=== PATIENT | female | born 1950 | race Caucasian/White ===

== ENCOUNTER 2021-08-08 15:01 | Inpatient (IN) ==
[2021-08-08] MEDS ORDERED: METOPROLOL TARTRATE 5 MG/5 ML VIAL IV STA ×2 (15:29→16:50)
[2021-08-08 15:54] LABS: Basophils % 0.1 % (0.0-0.8); Hematocrit 48.4 VOL% (35.7-47.0); Hemoglobin 15.7 GM/DL (12.0-16.0); Immature Granulocytes Absolute 0.24 #; Lymphocytes # 1.3 10*3/uL (1.4-4.0); Lymphocytes % 5.7 % (21.3-54.2); Mean Corpuscular HGB Conc 32.4 GM/DL (32-36); Mean Corpuscular Volume 94.9 FL (87-102); Mean Platelet Volume 10.9 FL (9.6-12.0); Monocytes % 3.4 % (1.7-12.7); Neutrophils % 89.8 % (38.7-73.9); Platelet Count 266 T/CUMM (130-400); Red Cell Distribution Width 14.2 % (9.3-17.3); White Blood Count 23.3 T/CUMM (4-12)
[2021-08-08 16:14] LABS: Blood Urea Nitrogen 75 MG/DL (7-18); Calcium 9.2 MG/DL (8.5-10.1); Carbon Dioxide 22 MMOL/L (21-32); Estimated Glom Filtration Rate 20 ML/MIN; Glucose 183 MG/DL (74-106); Osmolality,Calculated 301.7 MOS/KG (273-304); Sodium 138 MMOL/L (136-145)
[2021-08-08 16:15] LABS: Lymphocytes 9 % (20-55); Platelet Estimate Adequate; Segmented Neutrophils 87 % (50-85); Total Cells Counted 100
[2021-08-08] MEDS ORDERED: ENOXAPARIN 100 MG/ML SYRINGE SUBCUT STA (17:45)
[2021-08-08] MEDS ORDERED: ONDANSETRON 4 MG/2 ML VIAL IV STA (17:45)
[2021-08-08] MEDS ORDERED: MORPHINE 4 MG/1 ML VIAL IV STA (17:59)
[2021-08-08] MEDS ORDERED: METOPROLOL TARTRATE 25 MG TABLET PO STA (18:27)
[2021-08-08] MEDS ORDERED: GLUCAGON 1 MG VIAL IM PRN (18:30)
[2021-08-08] MEDS ORDERED: ACETAMINOPHEN 325 MG TABLET PO PRN (18:30)
[2021-08-08] MEDS ORDERED: ALBUTEROL 2.5 MG/3 ML NEB RESP TX PRN (18:30)
[2021-08-08] MEDS ORDERED: hydrALAZINE 20 MG/1 ML VIAL IV PRN (18:30)
[2021-08-08] MEDS ORDERED: ONDANSETRON 4 MG/2 ML VIAL IV PRN (18:30)
[2021-08-08] MEDS ORDERED: DEXTROSE 10% 250 ML BAG IV PRN (18:49)
[2021-08-08] MEDS ORDERED: DILTIAZEM INJ 100 MG in SODIUM CHLORIDE 0.9% 100 ML IV SCH (19:00)
[2021-08-08] MEDS: SODIUM CHLORIDE 0.9% 1,000 ML IV SCH (20:40)
[2021-08-08] MEDS ORDERED: METOPROLOL TARTRATE 25 MG TABLET PO SCH (21:00)
[2021-08-09 01:02] LABS: Bacteria,Urine Occasional /HPF (Few); Hyaline Casts,Urine 1 /LPF (0-3); Mucus,Urine Occasional /LPF (Occasional); RBC,Urine 1 /HPF (0-4); Squamous Epithelial Cell,Urine Occasional /HPF (0-10)
[2021-08-09 01:04] LABS: Bilirubin,Urine Negative (Negative); Blood, Urine Negative (Negative); Glucose,Urine (UA) Negative (Negative); Ketones,Urine Negative (Negative); Nitrite,Urine Negative (Negative); Protein,Urine Negative (Negative); Urine Appearance Clear (Clear); Urine Color Yellow (Yellow); Urine Specific Gravity 1.025 (1.001-1.035); Urine Urobilinogen 0.2 eU/dL (<2.0)
[2021-08-09 06:13] LABS: Hematocrit 43.9 VOL% (35.7-47.0); Hemoglobin 14.2 GM/DL (12.0-16.0); Red Blood Count 4.63 MC/CUMM (3.8-5.5); White Blood Count 18.6 T/CUMM (4-12)
[2021-08-09 06:14] LABS: Basophils % 0.1 % (0.0-0.8); Immature Granulocytes % 1.3 %; Immature Granulocytes Absolute 0.24 #; Lymphocytes # 1.3 10*3/uL (1.4-4.0); Lymphocytes % 7.2 % (21.3-54.2); Mean Corpuscular HGB Conc 32.3 GM/DL (32-36); Mean Corpuscular Volume 94.8 FL (87-102); Mean Platelet Volume 10.7 FL (9.6-12.0); Monocytes % 4.3 % (1.7-12.7); Neutrophils % 87.1 % (38.7-73.9); Platelet Count 209 T/CUMM (130-400); Red Cell Distribution Width 14.2 % (9.3-17.3)
[2021-08-09 06:33] LABS: Calcium 8.7 MG/DL (8.5-10.1); Osmolality,Calculated 294.1 MOS/KG (273-304); Potassium 5.3 MMOL/L (3.5-5.1); Risk Ratio 3.23; Thyroid Stimulating Hormone 0.125 uIU/ml (0.358-3.74); VLDL Cholesterol 54.6 MG/DL
[2021-08-09 08:46] LABS: Free T4 (Free Thyroxine) 1.09 NG/DL (0.76-1.46)
[2021-08-09] MEDS: METOPROLOL SUCCINATE XL 25 MG TABLET PO SCH (09:34)
[2021-08-09] MEDS: APIXABAN 2.5 MG TABLET PO SCH ×2 (09:34→20:14)
[2021-08-09] MEDS: PANTOPRAZOLE 40 MG TABLET PO SCH (09:34)
[2021-08-09] MEDS ORDERED: DILTIAZEM CD 120 MG CAPSULE PO ONE (13:50)
[2021-08-09] MEDS: SODIUM CHLORIDE 0.9% 1,000 ML IV SCH (13:59)
[2021-08-09] MEDS ORDERED: ENOXAPARIN 40 MG/0.4 ML SYRINGE SUBCUT SCH (17:00)
[2021-08-09] MEDS: SIMVASTATIN 20 MG TABLET PO SCH (20:14)
[2021-08-09] MEDS: SERTRALINE 25 MG TABLET PO SCH (20:14)
[2021-08-10] MEDS: MONTELUKAST 10 MG TABLET PO SCH (09:11)
[2021-08-10] MEDS: PANTOPRAZOLE 40 MG TABLET PO SCH (09:11)
[2021-08-10] MEDS: METOPROLOL SUCCINATE XL 25 MG TABLET PO SCH (09:12)
[2021-08-10] MEDS: DILTIAZEM CD 120 MG CAPSULE PO SCH (09:12)
[2021-08-10] MEDS: EZETIMIBE 10 MG TABLET PO SCH (09:12)
[2021-08-10] MEDS: CHOLECALCIFEROL 1,000 UNIT TABLET PO SCH (09:12)
[2021-08-10] MEDS: APIXABAN 2.5 MG TABLET PO SCH ×2 (09:12→20:40)
[2021-08-10] MEDS: SODIUM CHLORIDE 0.9% 1,000 ML IV SCH (09:42)
[2021-08-10 10:15] LABS: Basophils % 0.2 % (0.0-0.8); Eosinophils # 0.1 10*3/uL (0.0-0.87); Eosinophils % 0.3 % (0.00-10.9); Hematocrit 48.6 VOL% (35.7-47.0); Hemoglobin 15.3 GM/DL (12.0-16.0); Immature Granulocytes % 1.1 %; Immature Granulocytes Absolute 0.17 #; Lymphocytes # 3.1 10*3/uL (1.4-4.0); Lymphocytes % 19.1 % (21.3-54.2); Mean Corpuscular HGB Conc 31.5 GM/DL (32-36); Mean Corpuscular Volume 97.8 FL (87-102); Mean Platelet Volume 10.8 FL (9.6-12.0); Monocytes % 6.3 % (1.7-12.7); Platelet Count 214 T/CUMM (130-400); Red Blood Count 4.97 MC/CUMM (3.8-5.5); Red Cell Distribution Width 14.4 % (9.3-17.3)
[2021-08-10 10:36] LABS: Calcium 8.1 MG/DL (8.5-10.1); Osmolality,Calculated 299.3 MOS/KG (273-304); Potassium 4.7 MMOL/L (3.5-5.1)
[2021-08-10] MEDS: SIMVASTATIN 20 MG TABLET PO SCH (20:40)
[2021-08-10] MEDS: SERTRALINE 25 MG TABLET PO SCH (20:40)
[2021-08-11 04:58] LABS: Basophils % 0.2 % (0.0-0.8); Eosinophils # 0.1 10*3/uL (0.0-0.87); Eosinophils % 1.1 % (0.00-10.9); Hematocrit 47.2 VOL% (35.7-47.0); Hemoglobin 14.4 GM/DL (12.0-16.0); Immature Granulocytes % 0.9 %; Immature Granulocytes Absolute 0.12 #; Lymphocytes # 2.2 10*3/uL (1.4-4.0); Lymphocytes % 16.8 % (21.3-54.2); Mean Corpuscular HGB Conc 30.5 GM/DL (32-36); Mean Corpuscular Volume 95.4 FL (87-102); Mean Platelet Volume 10.3 FL (9.6-12.0); Platelet Count 195 T/CUMM (130-400); Red Blood Count 4.95 MC/CUMM (3.8-5.5); Red Cell Distribution Width 14.3 % (9.3-17.3); White Blood Count 12.9 T/CUMM (4-12)
[2021-08-11 05:18] LABS: Potassium 4.2 MMOL/L (3.5-5.1)
[2021-08-11] MEDS: SODIUM CHLORIDE 0.9% 1,000 ML IV SCH (06:14)
[2021-08-11] MEDS: CHOLECALCIFEROL 1,000 UNIT TABLET PO SCH (10:00)
[2021-08-11] MEDS: EZETIMIBE 10 MG TABLET PO SCH (10:00)
[2021-08-11] MEDS: APIXABAN 2.5 MG TABLET PO SCH (10:00)
[2021-08-11] MEDS: PANTOPRAZOLE 40 MG TABLET PO SCH (10:01)
[2021-08-11] MEDS: METOPROLOL SUCCINATE XL 25 MG TABLET PO SCH (10:01)
[2021-08-11] MEDS: MONTELUKAST 10 MG TABLET PO SCH (10:01)
[2021-08-11] MEDS: DILTIAZEM CD 120 MG CAPSULE PO SCH (10:01)
[2021-08-11 12:00] VITALS: BP 144/99
== END 2021-08-11 16:10 | disposition home or self-care (01) | DRG 308 ==
LOC: N.EDINP 15:01 → N.ED 15:01 → N.TELES 23:22 → SUATTDRO 08-09 08:44
PROVIDERS: ADMIT Internal Medicine Geriatric Medicine; ATTEND Phlebology

== ENCOUNTER 2021-10-15 14:57 | Inpatient (IN) ==
[2021-10-15 16:20] LABS: Albumin 2.7 G/DL (3.4-5.0); Bilirubin,Total 1.2 MG/DL (0.20-1.00); Calcium 8.8 MG/DL (8.5-10.1); Osmolality,Calculated 275.2 MOS/KG (273-304); Potassium 3.4 MMOL/L (3.5-5.1); Total Protein 7.6 G/DL (6.4-8.2)
[2021-10-15 17:24] LABS: Basophils % 0.2 % (0.0-0.8); Eosinophils # 0.2 10*3/uL (0.0-0.87); Eosinophils % 1.5 % (0.00-10.9); Hematocrit 40.7 VOL% (35.7-47.0); Immature Granulocytes % 0.5 %; Immature Granulocytes Absolute 0.07 #; Lymphocytes # 0.9 10*3/uL (1.4-4.0); Lymphocytes % 6.3 % (21.3-54.2); Mean Corpuscular HGB Conc 31.9 GM/DL (32-36); Mean Corpuscular Volume 95.1 FL (87-102); Mean Platelet Volume 11.4 FL (9.6-12.0); Monocytes # 0.9 10*3/uL (0.11-0.8); Monocytes % 6.8 % (1.7-12.7); Neutrophils % 84.7 % (38.7-73.9); Platelet Count 247 T/CUMM (130-400); Red Blood Count 4.28 MC/CUMM (3.8-5.5); Red Cell Distribution Width 13.5 % (9.3-17.3); White Blood Count 13.6 T/CUMM (4-12)
[2021-10-15] MEDS ORDERED: DOCUSATE SODIUM 100 MG CAPSULE PO PRN (19:23)
[2021-10-15] MEDS ORDERED: CALCIUM CARBONATE CHEW 500 MG TABLET PO PRN (19:23)
[2021-10-15] MEDS ORDERED: ONDANSETRON 4 MG/2 ML VIAL IV PRN (19:23)
[2021-10-15] MEDS ORDERED: ACETAMINOPHEN 325 MG TABLET PO PRN (19:23)
[2021-10-15] MEDS: carvediloL 12.5 MG TABLET PO SCH (21:26)
[2021-10-15] MEDS: APIXABAN 2.5 MG TABLET PO SCH (21:27)
[2021-10-15] MEDS: MONTELUKAST 10 MG TABLET PO SCH (21:27)
[2021-10-15] MEDS: SIMVASTATIN 20 MG TABLET PO SCH (21:27)
[2021-10-15] MEDS: FAMOTIDINE 20 MG TABLET PO SCH (21:27)
[2021-10-15] MEDS: SERTRALINE 25 MG TABLET PO SCH (21:27)
[2021-10-16 04:30] LABS: Basophils % 0.2 % (0.0-0.8); Eosinophils # 0.3 10*3/uL (0.0-0.87); Eosinophils % 2.3 % (0.00-10.9); Hematocrit 36.5 VOL% (35.7-47.0); Hemoglobin 11.6 GM/DL (12.0-16.0); Immature Granulocytes % 0.4 %; Immature Granulocytes Absolute 0.05 #; Lymphocytes # 0.9 10*3/uL (1.4-4.0); Lymphocytes % 7.1 % (21.3-54.2); Mean Corpuscular HGB Conc 31.8 GM/DL (32-36); Mean Corpuscular Volume 97.3 FL (87-102); Mean Platelet Volume 11.3 FL (9.6-12.0); Monocytes # 0.8 10*3/uL (0.11-0.8); Monocytes % 6.4 % (1.7-12.7); Neutrophils % 83.6 % (38.7-73.9); Platelet Count 219 T/CUMM (130-400); Red Blood Count 3.75 MC/CUMM (3.8-5.5); Red Cell Distribution Width 13.3 % (9.3-17.3); White Blood Count 12.9 T/CUMM (4-12)
[2021-10-16 04:50] LABS: Calcium 8.5 MG/DL (8.5-10.1); Osmolality,Calculated 277.1 MOS/KG (273-304); Potassium 3.2 MMOL/L (3.5-5.1)
[2021-10-16] MEDS: DILTIAZEM CD 120 MG CAPSULE PO SCH (09:27)
[2021-10-16] MEDS: FAMOTIDINE 20 MG TABLET PO SCH ×2 (09:28→22:29)
[2021-10-16] MEDS: FUROSEMIDE 40 MG TABLET PO SCH (09:28)
[2021-10-16] MEDS: carvediloL 12.5 MG TABLET PO SCH ×2 (09:28→22:30)
[2021-10-16] MEDS: ASPIRIN EC 81 MG TABLET PO SCH (09:28)
[2021-10-16] MEDS: APIXABAN 2.5 MG TABLET PO SCH ×2 (09:28→22:29)
[2021-10-16] MEDS ORDERED: MORPHINE 2 MG/1 ML SYRINGE IV ONE (10:00)
[2021-10-16] MEDS ORDERED: POTASSIUM CHLORIDE 10 MEQ TABLET PO STA (10:50)
[2021-10-16] MEDS: EZETIMIBE 10 MG TABLET PO SCH (11:12)
[2021-10-16 11:37] LABS: Free T4 (Free Thyroxine) 1.5 NG/DL (0.76-1.46); Thyroid Stimulating Hormone 1.14 uIU/ml (0.358-3.74)
[2021-10-16] MEDS ORDERED: LEVALBUTEROL 1.25 MG/3 ML NEB RESP TX PRN (12:33)
[2021-10-16] MEDS: SERTRALINE 25 MG TABLET PO SCH (22:29)
[2021-10-16] MEDS: MONTELUKAST 10 MG TABLET PO SCH (22:29)
[2021-10-16] MEDS: SIMVASTATIN 20 MG TABLET PO SCH (22:30)
[2021-10-17 04:13] LABS: Basophils % 0.2 % (0.0-0.8); Eosinophils # 0.2 10*3/uL (0.0-0.87); Eosinophils % 1.9 % (0.00-10.9); Hematocrit 36.8 VOL% (35.7-47.0); Hemoglobin 11.7 GM/DL (12.0-16.0); Immature Granulocytes % 0.5 %; Immature Granulocytes Absolute 0.06 #; Lymphocytes # 0.7 10*3/uL (1.4-4.0); Lymphocytes % 5.1 % (21.3-54.2); Mean Corpuscular HGB Conc 31.8 GM/DL (32-36); Mean Corpuscular Volume 95.8 FL (87-102); Mean Platelet Volume 11.8 FL (9.6-12.0); Monocytes # 0.7 10*3/uL (0.11-0.8); Monocytes % 5.8 % (1.7-12.7); Neutrophils % 86.5 % (38.7-73.9); Platelet Count 234 T/CUMM (130-400); Red Blood Count 3.84 MC/CUMM (3.8-5.5); Red Cell Distribution Width 13.2 % (9.3-17.3); White Blood Count 12.9 T/CUMM (4-12)
[2021-10-17 04:41] LABS: Calcium 8.3 MG/DL (8.5-10.1); Osmolality,Calculated 280.2 MOS/KG (273-304); Potassium 3.3 MMOL/L (3.5-5.1)
[2021-10-17] MEDS: APIXABAN 2.5 MG TABLET PO SCH ×2 (08:11→20:41)
[2021-10-17] MEDS: FAMOTIDINE 20 MG TABLET PO SCH ×2 (08:11→20:41)
[2021-10-17] MEDS: FUROSEMIDE 40 MG TABLET PO SCH (08:12)
[2021-10-17] MEDS: carvediloL 12.5 MG TABLET PO SCH ×2 (08:12→20:41)
[2021-10-17] MEDS: DILTIAZEM CD 120 MG CAPSULE PO SCH (08:12)
[2021-10-17] MEDS: ASPIRIN EC 81 MG TABLET PO SCH (08:12)
[2021-10-17] MEDS: EZETIMIBE 10 MG TABLET PO SCH (08:12)
[2021-10-17] MEDS: SIMVASTATIN 20 MG TABLET PO SCH (20:41)
[2021-10-17] MEDS: SERTRALINE 25 MG TABLET PO SCH (20:41)
[2021-10-17] MEDS: MONTELUKAST 10 MG TABLET PO SCH (20:41)
[2021-10-18] MEDS: ASPIRIN EC 81 MG TABLET PO SCH (09:17)
[2021-10-18] MEDS: EZETIMIBE 10 MG TABLET PO SCH (09:17)
[2021-10-18] MEDS: DILTIAZEM CD 120 MG CAPSULE PO SCH (09:17)
[2021-10-18] MEDS: FAMOTIDINE 20 MG TABLET PO SCH ×2 (09:18→21:47)
[2021-10-18] MEDS: FUROSEMIDE 40 MG TABLET PO SCH (09:18)
[2021-10-18] MEDS: APIXABAN 2.5 MG TABLET PO SCH ×2 (09:18→21:47)
[2021-10-18] MEDS: carvediloL 12.5 MG TABLET PO SCH ×2 (09:18→21:47)
[2021-10-18] MEDS ORDERED: IPRATROPIUM 500 MCG/2.5 ML NEB RESP TX PRN (10:00)
[2021-10-18] MEDS: POTASSIUM CHLORIDE 10 MEQ TABLET PO SCH (11:11)
[2021-10-18] MEDS: methylPREDNISolone SOD SUC 40 MG/1 ML VIAL IV SCH ×2 (11:21→21:46)
[2021-10-18] MEDS: IPRATROPIUM 500 MCG/2.5 ML NEB RESP TX SCH ×2 (14:21→19:55)
[2021-10-18] MEDS: FUROSEMIDE 100 MG/10 ML VIAL IV SCH (16:21)
[2021-10-18] MEDS: SERTRALINE 25 MG TABLET PO SCH (21:47)
[2021-10-18] MEDS: SIMVASTATIN 20 MG TABLET PO SCH (21:47)
[2021-10-18] MEDS: MONTELUKAST 10 MG TABLET PO SCH (21:47)
[2021-10-19] MEDS: IPRATROPIUM 500 MCG/2.5 ML NEB RESP TX SCH ×4 (00:05→19:15)
[2021-10-19 05:18] LABS: Basophils % 0.1 % (0.0-0.8); Hematocrit 38.7 VOL% (35.7-47.0); Hemoglobin 12.4 GM/DL (12.0-16.0); Immature Granulocytes % 0.6 %; Immature Granulocytes Absolute 0.09 #; Lymphocytes # 0.6 10*3/uL (1.4-4.0); Lymphocytes % 4.2 % (21.3-54.2); Mean Corpuscular Volume 93.7 FL (87-102); Mean Platelet Volume 11.4 FL (9.6-12.0); Monocytes # 0.1 10*3/uL (0.11-0.8); Monocytes % 0.9 % (1.7-12.7); Neutrophils % 94.2 % (38.7-73.9); Platelet Count 366 T/CUMM (130-400); Red Blood Count 4.13 MC/CUMM (3.8-5.5); Red Cell Distribution Width 13.2 % (9.3-17.3); White Blood Count 13.9 T/CUMM (4-12)
[2021-10-19 05:38] LABS: Calcium 8.8 MG/DL (8.5-10.1); Lymphocytes 2 % (20-55); Osmolality,Calculated 290.8 MOS/KG (273-304); Platelet Estimate Adequate; Potassium 3.2 MMOL/L (3.5-5.1); Total Cells Counted 100
[2021-10-19] MEDS: POTASSIUM CHLORIDE 10 MEQ TABLET PO SCH ×2 (09:04→21:21)
[2021-10-19] MEDS: FAMOTIDINE 20 MG TABLET PO SCH ×2 (09:04→21:21)
[2021-10-19] MEDS: MONTELUKAST 10 MG TABLET PO SCH ×2 (09:04→21:21)
[2021-10-19] MEDS: DILTIAZEM CD 120 MG CAPSULE PO SCH (09:04)
[2021-10-19] MEDS: APIXABAN 2.5 MG TABLET PO SCH ×2 (09:04→21:21)
[2021-10-19] MEDS: carvediloL 12.5 MG TABLET PO SCH ×2 (09:05→21:21)
[2021-10-19] MEDS: EZETIMIBE 10 MG TABLET PO SCH (09:05)
[2021-10-19] MEDS: ASPIRIN EC 81 MG TABLET PO SCH (09:05)
[2021-10-19] MEDS: FUROSEMIDE 100 MG/10 ML VIAL IV SCH ×2 (13:55→17:28)
[2021-10-19] MEDS: methylPREDNISolone SOD SUC 40 MG/1 ML VIAL IV SCH ×2 (14:37→22:43)
[2021-10-19] MEDS: SERTRALINE 25 MG TABLET PO SCH (21:21)
[2021-10-19] MEDS: SIMVASTATIN 20 MG TABLET PO SCH (21:21)
[2021-10-20] MEDS: IPRATROPIUM 500 MCG/2.5 ML NEB RESP TX SCH ×4 (03:41→19:05)
[2021-10-20 05:50] LABS: Calcium 9.2 MG/DL (8.5-10.1); Osmolality,Calculated 296.5 MOS/KG (273-304); Potassium 3.7 MMOL/L (3.5-5.1)
[2021-10-20] MEDS: MONTELUKAST 10 MG TABLET PO SCH ×2 (08:43→21:24)
[2021-10-20] MEDS: EZETIMIBE 10 MG TABLET PO SCH (08:43)
[2021-10-20] MEDS: carvediloL 12.5 MG TABLET PO SCH ×2 (08:43→21:25)
[2021-10-20] MEDS: APIXABAN 2.5 MG TABLET PO SCH ×2 (08:44→21:25)
[2021-10-20] MEDS: ASPIRIN EC 81 MG TABLET PO SCH (08:44)
[2021-10-20] MEDS: DILTIAZEM CD 120 MG CAPSULE PO SCH (08:44)
[2021-10-20] MEDS: FAMOTIDINE 20 MG TABLET PO SCH ×2 (08:44→21:25)
[2021-10-20] MEDS: POTASSIUM CHLORIDE 10 MEQ TABLET PO SCH ×2 (08:44→21:24)
[2021-10-20] MEDS: FUROSEMIDE 100 MG/10 ML VIAL IV SCH ×2 (08:45→16:46)
[2021-10-20] MEDS: methylPREDNISolone SOD SUC 40 MG/1 ML VIAL IV SCH ×2 (12:52→21:31)
[2021-10-20] MEDS: guaiFENesin/DM ER 600-30 MG TABLET PO PRN ×2 (21:24→21:31)
[2021-10-20] MEDS: SIMVASTATIN 20 MG TABLET PO SCH (21:24)
[2021-10-20] MEDS: SERTRALINE 25 MG TABLET PO SCH (21:24)
[2021-10-21] MEDS: IPRATROPIUM 500 MCG/2.5 ML NEB RESP TX SCH ×2 (00:01→07:10)
[2021-10-21] MEDS: FUROSEMIDE 100 MG/10 ML VIAL IV SCH (08:10)
[2021-10-21] MEDS: EZETIMIBE 10 MG TABLET PO SCH (08:10)
[2021-10-21] MEDS: DILTIAZEM CD 120 MG CAPSULE PO SCH (08:10)
[2021-10-21] MEDS: MONTELUKAST 10 MG TABLET PO SCH (08:11)
[2021-10-21] MEDS: guaiFENesin/DM ER 600-30 MG TABLET PO PRN (08:11)
[2021-10-21] MEDS: ASPIRIN EC 81 MG TABLET PO SCH (08:11)
[2021-10-21] MEDS: carvediloL 12.5 MG TABLET PO SCH (08:11)
[2021-10-21] MEDS: POTASSIUM CHLORIDE 10 MEQ TABLET PO SCH (08:11)
[2021-10-21] MEDS: APIXABAN 2.5 MG TABLET PO SCH (08:11)
[2021-10-21] MEDS: FAMOTIDINE 20 MG TABLET PO SCH (08:11)
[2021-10-21] MEDS: methylPREDNISolone SOD SUC 40 MG/1 ML VIAL IV SCH (10:24)
[2021-10-21 11:09] VITALS: BP 146/90
== END 2021-10-21 11:34 | disposition home health service (06) | DRG 314 ==
LOC: N.EDINP 14:57 → N.ED 14:57 → N.TELEN 22:35 → N.EDINP 23:49 → N.TELEN 10-16 15:13 → SUATTDRO 10-17 13:40
PROVIDERS: ADMIT Internal Medicine; ATTEND Internal Medicine